=== PATIENT | female | born 1960 | race Caucasian/White ===

== ENCOUNTER 2018-07-12 08:11 | Emergency (ER) | payer OTHER ==
[~2018-07-12] VITALS: Ht 157.5 cm; Wt 61.2 kg
[~2018-07-12 08:11] MED LIST: HYDR-3165 PO
[2018-07-12 08:17] VITALS: BP 146/95
[2018-07-12] MEDS ORDERED: traMADol 50 MG TABLET PO ONE (09:00)
--- NOTE | 2018-07-12 09:17 | RAD ---
Left tibia and fibula, 3 views, 07/12/2018: HISTORY: Pain, falls There is a metallic plate and screws in place related to the distal fibula apparently transfixing an old healed fracture. There is also a screw at the medial malleolar level. No recent fracture is identified. There is mild degenerative change at the ankle joint. IMPRESSION: 1. Old, healed, internally fixed medial and lateral malleolar fractures. 2. No acute bony abnormality is detected. Electronically signed by: Robby Louis MD (07/12/2018 9:14 AM) [facility]
--- NOTE | 2018-07-12 09:45 | RAD ---
Ultrasound venous Doppler INDICATION:DX: Left Leg pain x 2 weeks TECHNIQUE: Grayscale, color Doppler and spectral waveform ultrasound images of the left lower extremity deep veins obtained. COMPARISON: None FINDINGS: The interrogated deep veins are compressible and demonstrate evidence of blood flow with normal respiratory variation and response to augmentation. IMPRESSION: No sonographic evidence of acute DVT of the left lower extremity deep veins. Electronically signed by: Joshua Whitman DO (07/12/2018 9:42 AM) [id number]
[2018-07-12] MEDS ORDERED: NAPR-683 PO (09:54)
[2018-07-12] MEDS ORDERED: CYCL-331 PO (09:54)
--- NOTE | 2018-07-12 09:54 | PHYS DOC ---
Past History Past Medical History: No Pertinent History Past Surgical History: , Oophorectomy, Other Additional Smoking Information: 05/08 PPD Alcohol Use: None Drug Use: None Adult General Chief Complaint Chief Complaint: leg pain HPI HPI Patient is a 57 year old female who presents with complaining of leg pain. Patient states he has had bilateral toes pain for 2 months and seen at urgent care and treated for yeast infection without improvement of her pain. Patient complaining of left leg pain for the last 2 weeks as a constant pain that getting force with movement and activity. Patient states she had a few falls on ice the last few weeks. Patient denies focal neuro deficit, fever and chills, shortness of breath, history of PE and DVT. Review of Systems Review of Systems Constitutional: Denies fever or chills [] Eyes: Denies change in visual acuity, redness, or eye pain [] HENT: Denies nasal congestion or sore throat [] Respiratory: Denies cough or shortness of breath [] Cardiovascular: No additional information not addressed in HPI [] GI: Denies abdominal pain, nausea, vomiting, bloody stools or diarrhea [] : Denies dysuria or hematuria [] Musculoskeletal: Denies back pain , reports joint pain [] Integument: Denies rash or skin lesions [] Neurologic: Denies headache, focal weakness or sensory changes [] Endocrine: Denies polyuria or polydipsia [] All other systems were reviewed and found to be within normal limits, except as documented in this note. Current Medications Current Medications Current Medications Medications (Trade) Dose Ordered Sig/Jessa Start Time Stop Time Status Last Admin Dose Admin Tramadol HCl (Ultram) 50 mg 1X ONCE 07/12/18 09:00 07/12/18 09:01 DC 07/12/18 08:37 50 MG Allergies Allergies Allergies Coded Allergies Type Severity Reaction Last Updated Verified Penicillins Adverse Reaction Intermediate 02/29/16 Yes codeine Adverse Reaction Intermediate 02/29/16 Yes meperidine Adverse Reaction Intermediate 02/29/16 Yes Physical Exam Physical Exam Constitutional: Well developed, well nourished, mild distress, non-toxic appearance. [] HENT: Normocephalic, atraumatic Eyes: PERRLA, EOMI, conjunctiva normal, no discharge. [] Neck: Normal range of motion, no tenderness, supple, no stridor. [] Cardiovascular:Heart rate regular rhythm, no murmur [] Lungs & Thorax: Bilateral breath sounds clear to auscultation [] Extremities: No deformity or edema, no tenderness, no cyanosis, no clubbing, ROM intact, no edema. [] Neurologic: Alert and oriented X 3, normal motor function, normal sensory function, no focal deficits noted. [] Psychologic: Affect normal, judgement normal, mood normal. [] Current Patient Data Vital Signs Vital Signs Date Time Temp Pulse Resp B/P (MAP) Pulse Ox O2 Delivery O2 Flow Rate FiO2 07/12/18 08:37 18 98 Room Air 07/12/18 08:17 98.0 96 EKG EKG [] Radiology/Procedures Radiology/Procedures [address] [address] IMAGING REPORT Signed PATIENT: BENNY KUHN ACCOUNT: [id number] : 1960 LOCATION: ER AGE: 57 SEX: F EXAM STATUS: REG ER ORD. PHYSICIAN: CRISTINA VILLAR MD REASON: pain for 2 weeks PROCEDURE: VENOUS LOWER EXTREMITY LEFT Ultrasound venous Doppler INDICATION:DX: Left Leg pain x 2 weeks TECHNIQUE: Grayscale, color Doppler and spectral waveform ultrasound images of the left lower extremity deep veins obtained. COMPARISON: None FINDINGS: The interrogated deep veins are compressible and demonstrate evidence of blood flow with normal respiratory variation and response to augmentation. IMPRESSION: No sonographic evidence of acute DVT of the left lower extremity deep veins. Electronically signed by: Joshua Whitman DO (07/12/2018 9:42 AM) [id number] DICTATED AND SIGNED BY: JOSHUA WHITMAN DO DATE: 07/12/18 0942 CC: CRISTINA VILLAR MD; PCP,NO ~ [address] [address] IMAGING REPORT Signed PATIENT: BENNY KUHN ACCOUNT: [id number] : 1960 LOCATION: ER AGE: 57 SEX: F EXAM STATUS: REG ER ORD. PHYSICIAN: CRISTINA VILLAR MD REASON: falls and pain PROCEDURE: TIBIA FIBULA LEFT Left tibia and fibula, 3 views, 07/12/2018: HISTORY: Pain, falls There is a metallic plate and screws in place related to the distal fibula apparently transfixing an old healed fracture. There is also a screw at the medial malleolar level. No recent fracture is identified. There is mild degenerative change at the ankle joint. IMPRESSION: 1. Old, healed, internally fixed medial and lateral malleolar fractures. 2. No acute bony abnormality is detected. Electronically signed by: Robby Louis MD (07/12/2018 9:14 AM) [facility] DICTATED AND SIGNED BY: ROBBY LOUIS MD DATE: 07/12/18913 CC: CRISTINA VILLAR MD; PCP,NO ~ Course & Med Decision Making Course & Med Decision Making Pertinent Imaging studies reviewed. (See chart for details) Evaluation of patient in ER showed 57-year-old female patient with complaining of chronic pain in bilateral toes and left leg pain for 2 weeks. Patient had unremarkable physical exam and x-ray and venous Doppler study. Patient was advised to follow-up with a primary care physician regarding chronic pain. Dragon Disclaimer Dragon Disclaimer This electronic medical record was generated, in whole or in part, using a voice recognition dictation system. Departure Departure: Impression: Primary Impression: Lower extremity pain Additional Impressions: Chronic pain Tobacco abuse Tobacco abuse counseling Disposition: HOME, SELF-CARE (at 0950) Condition: STABLE Referrals: PCP,NO (PCP) Patient Instructions: Chronic Pain, Muscle Strain, Smoking Cessation Additional Instructions: Apply ice on the affected area Follow-up with your primary care physician in 3-5 days Return to ER if not getting better Scripts Naproxen (NAPROSYN) 500 Mg Tablet 500 MG PO BID for pain, #20 TAB Prov: CRISTINA VILLAR MD 07/12/18 Cyclobenzaprine Hcl (CYCLOBENZAPRINE HCL) 10 Mg Tablet 1 TAB PO TID for pain, #20 TAB Prov: CRISTINA VILLAR MD 07/12/18 Problem Qualifiers Primary Impression: Lower extremity pain Laterality: left Qualified Codes: M79.605 - Pain in left leg Additional Impressions: Chronic pain Chronic pain type: other chronic pain Qualified Codes: G89.29 - Other chronic pain CRISTINA VILLAR MD Jul 12, 2018 09:54
== END 2018-07-12 10:00 | disposition home or self-care (01) ==
LOC: ER 08:11
DX: M79.605 Pain in left leg (principal); G89.29 Other chronic pain; M79.675 Pain in left toe(s); M79.674 Pain in right toe(s); F17.200 Nicotine dependence, unspecified, uncomplicated; Z88.0 Allergy status to penicillin; Z88.5 Allergy status to narcotic agent; Z88.8 Allergy status to other drugs, medicaments and biological substances; W00.0XXA Fall on same level due to ice and snow, initial encounter; Y93.89 Activity, other specified; Y92.89 Other specified places as the place of occurrence of the external cause; Y99.8 Other external cause status
CPT/HCPCS: 73590; 93971; 99284-25

== ENCOUNTER 2019-12-17 13:09 | Emergency (ER) | payer OTHER ==
[~2019-12-17] VITALS: Ht 157.5 cm; Wt 69.0 kg
[~2019-12-17 13:09] MED LIST changes: +CYCL-331 PO; +NAPR-683 PO
[2019-12-17] MEDS ORDERED: KETOROLAC 60 MG/2 ML VIAL. IM ONE (14:00)
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
[2019-12-17] MEDS ORDERED: IOHEXOL 350 MG/ML 100 ML VIAL. IV ONE (17:15)
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
[2019-12-17] MEDS ORDERED: OXYC1TAB15 PO (18:13)
[2019-12-17 18:18] VITALS: BP 134/65
== END 2019-12-17 18:30 | disposition home or self-care (01) ==
LOC: ER 13:09
DX: S22.39XA Fracture of one rib, unspecified side, initial encounter for closed fracture (principal); Z88.0 Allergy status to penicillin; Z88.5 Allergy status to narcotic agent; Z88.8 Allergy status to other drugs, medicaments and biological substances; V89.2XXA Person injured in unspecified motor-vehicle accident, traffic, initial encounter; Y93.I9 Activity, other involving external motion; Y92.488 Other paved roadways as the place of occurrence of the external cause; Y99.8 Other external cause status
CPT/HCPCS: 36415; 71046; 71275; 85379; 96372; 99285; J1885; Q9967